=== PATIENT | female | born 1965 | race Caucasian/White ===

== ENCOUNTER → 2020-11-17 | Outpatient (CLI) | payer BC ==
[2020-11-17 12:42] LABS: D-DIMER 0.56 mg/L FEU (0.15-0.50)
== END ==
LOC: LAB 11:31
PROVIDERS: Family Medicine
DX: M25.562 Pain in left knee (principal)

== ENCOUNTER → 2020-11-18 | Outpatient (CLI) | payer BC | LOC: VAS 12:49 → RAD 13:00 | DX: M25.562 Pain in left knee (principal) ==

== ENCOUNTER → 2020-12-03 | Outpatient (CLI) | payer BC | LOC: LAB 13:11 | DX: Z20.822 Contact with and (suspected) exposure to COVID-19 (principal) ==

== ENCOUNTER → 2020-12-19 | Outpatient (CLI) | payer BC | LOC: LAB 10:25 | DX: R50.9 Fever, unspecified (principal) ==

== ENCOUNTER → 2021-03-30 | Outpatient (CLI) | payer BC | LOC: RAD 06:57 | DX: M22.42 Chondromalacia patellae, left knee (principal); S83.242A Other tear of medial meniscus, current injury, left knee, initial encounter ==

== ENCOUNTER → 2021-04-14 | Outpatient (CLI) | payer BC | LOC: RAD 10:09 | DX: M17.0 Bilateral primary osteoarthritis of knee (principal) ==

== ENCOUNTER → 2022-04-11 | Outpatient (CLI) | payer BC | LOC: RAD 14:11 | DX: M17.11 Unilateral primary osteoarthritis, right knee (principal) ==

== ENCOUNTER 2022-09-13 16:22 | Outpatient (RCR) | payer BC | END 2022-10-13 | disposition home or self-care (01) | LOC: PT | DX: M17.0 Bilateral primary osteoarthritis of knee (principal); Z96.652 Presence of left artificial knee joint ==

== ENCOUNTER 2022-10-18 07:45 | Outpatient (RCR) | payer BC | END 2022-11-09 14:51 | disposition home or self-care (01) | LOC: PT 07:45 | DX: M17.0 Bilateral primary osteoarthritis of knee (principal); Z96.652 Presence of left artificial knee joint ==